=== PATIENT | female | born 1995 | race African-American/Black ===

== ENCOUNTER → 2017-06-24 12:35 | Outpatient (CLI) | payer BC, SELFPAY ==
--- NOTE | 2017-06-24 12:59 | XR_ITS ---
XR chest 2V HISTORY: Tuberculosis, follow-up treatment ITS.REASON: LATENT TB, FU ORDERING PHYSICIAN: Holly Rand PATIENT AGE: 21 years COMPARISON: 11/12/2016 FINDINGS: The cardiomediastinal silhouette and pulmonary vascularity are within normal limits. The lungs are clear without infiltrates, suspicious nodules, or pleural effusions. No acute bony abnormalities. IMPRESSION: Negative chest, no acute finding No change with no acute finding. No evidence of active granulomatous process
== END ==
PROVIDERS: PCP Physician Assistant; Visit Provider Nurse Practitioner Family
DX: R76.11 Nonspecific reaction to tuberculin skin test without active tuberculosis (principal)
CPT/HCPCS: 71046